=== PATIENT | male | born 1940 | race Caucasian/White ===

== ENCOUNTER → 2020-07-06 01:34 | Outpatient (CLI) | payer MEDICARE, SELFPAY ==
[2020-07-07 14:53] LABS: SARS-CoV-2 RNA PCR Negative
== END ==
PROVIDERS: Visit Provider Internal Medicine Gastroenterology
DX: Z01.812 Encounter for preprocedural laboratory examination (principal); Z20.822 Contact with and (suspected) exposure to COVID-19
CPT/HCPCS: C9803; U0003; U0005

== ENCOUNTER 2020-07-09 02:10 | Day surgery (SDC) | payer MEDICARE, SELFPAY ==
[2020-06-28 13:46] VITALS: BMI 26.0
[2020-07-09 09:33] VITALS: BP 146/64; PULSE 65; RESP 18; TEMP 36.4; O2SAT 100; BMI 25.7
[2020-07-09] MEDS: LACTATED RINGERS 1,000 ML 150 ML IV CONT (09:38)
--- NOTE | 2020-07-09 09:39 | P.PNAN_ITS ---
Anes - Initial Pre Proc Eval Procedure: Operation Date: 07/09/20 11:15 Proposed Procedures p Esophagogastroduodenoscopy - Seun Hylton MD Date/Time: 07/09/20 09:39 Surgeon: Seun Hylton MD Pre Op Diagnosis: dysphagia Patient Data Age: 79 Gender: M Height: 1.7 m Weight: 74.7 kg Last Vital Signs Temp 36.4 C L 07/09/20 09:33 Pulse 65 07/09/20 09:33 Resp 18 07/09/20 09:33 BP 146/64 H 07/09/20 09:33 Pulse Ox 100 07/09/20 09:33 Allergies Allergy/AdvReac Type Severity Reaction Status Date / Time No Known Allergies Allergy Verified 07/09/20 09:31 Home Medications Medication Instructions Recorded Confirmed Type apixaban 5 mg tablet 5 mg PO BID 06/26/20 07/09/20 History pilocarpine HCl 5 mg tablet 5 mg PO TID 06/26/20 07/09/20 History simvastatin 40 mg tablet 40 mg PO DAILY 06/26/20 07/09/20 History Patient hx anesthesia problems: none Family hx anesthesia problems: none [facility] Past Medical History Medical History (Updated 07/09/20 @ 09:46 by Chetan Mackey DO) BPH (benign prostatic hyperplasia) 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 DVT (deep venous thrombosis) Hyperlipidemia Surgical History Surgical History (Updated 07/08/20 @ 10:05 by Chetan Mackey DO) History of tonsillectomy Family History Family History (Updated 06/26/20 @ 10:10 by Pita Gross CMA) Mother Carcinoma of colon Social History Social History (Updated 06/26/20 @ 10:09 by Pita Gross CMA) Smoking status: Never smoker Alcohol intake: former Substance use: never Substance use type: does not use Living arrangements: with family Gender identity (if verbalized by the patient): Male Spiritual care concerns: No Anes - Eval Final PreProcedure Day of Procedure 07/09/20 09:39 Patient weight: overweight Heart: regular rate and rhythm Lungs: clear to auscultation and normal air movement Airway: Mallampati scale class II Neurological: alert and oriented Last oral intake: >/= 8 hours ASA classification: III Anesthetic plan: proceed Anesthesia type and monitoring: general GIVS and standard monitoring Informed Consent: The patient's anesthetic plan and its attendant risks and benefits were discussed with the patient/family/POA. Questions were solicited and answers provided to the satisfaction of the patient/family/POA.
--- NOTE | 2020-07-09 09:58 | WPDGICN ---
Assessment and Plan Assessment and plan (1) Dysphagia: Code(s): R13.10 - Dysphagia, unspecified Status: Acute Assessment and Plan: Dysphagia may be related to oral pharyngeal etiology. Intrinsic obstruction of the esophagus cannot be excluded given his history of cancer. Plan is for EGD to assess more thoroughly. Dilatation may be accomplished if narrowing is identified. Agree with referral to speech therapy for swallowing therapy and perhaps modified barium swallow if indicated. (2) Lung cancer: Code(s): C34.90 - Malignant neoplasm of unspecified part of unspecified bronchus or lung Status: Acute GI Consult Note Consult date/time: 07/09/20 09:58 HPI: Amish Guo Jr. is a 79 year old male Complains of difficulty swallowing for several years. He recently was identified as having a lung cancer. He is currently undergoing therapy with chemo and radiation therapy. Because of difficulty swallowing he has seen ENT. He was referred to my office to exclude obstruction of the esophagus. Patient also has been referred for speech -swallow therapy that has not been accomplished yet. He states difficulty swallowing occurs high in the throat. Has been present for many years. 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 DVT (deep venous thrombosis) Hyperlipidemia Surgical History Surgical History (Updated 07/08/20 @ 10:05 by Chetan Mackey DO) History of tonsillectomy Family History Family History (Updated 06/26/20 @ 10:10 by Pita Gross CMA) Mother Carcinoma of colon Social History Social History (Updated 06/26/20 @ 10:09 by Pita Gross CMA) Smoking status: Never smoker Alcohol intake: former Substance use: never Substance use type: does not use Living arrangements: with family Gender identity (if verbalized by the patient): Male Spiritual care concerns: No Meds Home Medications and Allergies Home Medications Medication Instructions Recorded Confirmed Type apixaban 5 mg tablet 5 mg PO BID 06/26/20 07/09/20 History pilocarpine HCl 5 mg tablet 5 mg PO TID 06/26/20 07/09/20 History simvastatin 40 mg tablet 40 mg PO DAILY 06/26/20 07/09/20 History Allergies Allergy/AdvReac Type Severity Reaction Status Date / Time No Known Allergies Allergy Verified 07/09/20 09:31 Vital Signs Vital Signs - 24 hr 07/09/20 09:33 Temperature 97.5 F L Pulse Rate 65 Respiratory Rate 18 Blood Pressure 146/64 H Pulse Oximetry 100 Exam Narrative: Exam Narrative: Physical exam reveals patient to be alert. Vital signs stable. HEENT exam unremarkable. Lungs are clear to auscultation and percussion. Heart is without murmur or extra sounds. Abdominal exam bowel sounds present soft nontender with no organomegaly.
[2020-07-09] MEDS: BENZOCAINE (*SP) 60 ML SPRAY CAN (HURRICAINE) 1 SPRAY MUCOUS MEM (10:11)
[2020-07-09 10:27] VITALS: BP 109/66; PULSE 60; RESP 16; O2SAT 100
[2020-07-09 10:37] VITALS: BP 110/66; PULSE 60; RESP 20; O2SAT 100
[2020-07-09 10:47] VITALS: BP 127/82; PULSE 66; RESP 14; O2SAT 99
== END 2020-07-09 11:07 | disposition home or self-care (01) ==
PROVIDERS: PCP Otolaryngology; Visit Provider Internal Medicine Gastroenterology
PROC: 0DJ08ZZ Inspection of Upper Intestinal Tract, Via Natural or Artificial Opening Endoscopic (ICD-10-PCS; CPT 43235; principal; 2020-07-09 11:15)
DX: Q39.4 Esophageal web (principal); C34.90 Malignant neoplasm of unspecified part of unspecified bronchus or lung; E78.5 Hyperlipidemia, unspecified; N40.0 Benign prostatic hyperplasia without lower urinary tract symptoms; Z86.718 Personal history of other venous thrombosis and embolism; Z79.01 Long term (current) use of anticoagulants
CPT/HCPCS: 43450; 43235; C9803; J2704; J7120; U0003; U0005